=== PATIENT | male | born 1985 | race Caucasian/White ===

== ENCOUNTER 2024-11-14 15:00 | Emergency (ER) | payer OTHER, SELFPAY ==
[2024-11-14 15:07] VITALS: BP 131/91
[2024-11-14 15:45] LABS: Hematocrit 43.1 % (39.0-52.0); Hemoglobin 15.4 g/dL (13.0-18.0); Mean Corp Hgb Conc. 35.7 g/dL (33.0-37.0); Mean Corpuscular Volume 86.4 fL (80.0-94.0); Nucleated Red Blood Cells % 0 % (-); Platelet Count 241 10^3/uL (130-400); Red Cell Dist. Width 11.8 % (11.5-14.5)
[2024-11-14 16:10] LABS: ALT (SGPT) 16 U/L (0-50); AST (SGOT) 24 U/L (17-59); Albumin 4.9 g/dl (3.5-5.0); Alkaline Phosphatase 45 U/L (38-126); Blood Urea Nitrogen 18 mg/dl (9-20); Calcium 9.6 mg/dl (8.4-10.2); Carbon Dioxide 24 mmol/L (22-30); Chloride 107 mmol/L (98-107); Glucose 109 mg/dl (70-99); Potassium 4.0 mmol/L (3.5-5.1); Sodium 138 mmol/L (135-145); Total Protein 7.1 g/dl (6.3-8.2); eGFR > 60.00
--- NOTE | 2024-11-14 16:28 | ED.GENMED ---
History of Present Illness
General
Chief Complaint: Skin Problem
Source: patient and spouse
Time Seen by Provider: 11/14/24 16:05
History of Present Illness
History of Present Illness:
This patient is a 39-year-old male presents emergency department accompanied by his , who is an RN here in the hospital. Patient works as a builder, and states that yesterday after work he came home was playing with his cats, laying down and
started to feel itchy in the thigh area bilaterally. This progressed over about an hour associated with slight chest tightness. He looked in the mirror and noted that he had a 'rash all over'. At his 's recommendation he took Benadryl,
Pepcid, and applied cortisone cream. This helped improve his symptoms. However, in the middle the night he says that he woke up and noted 'pressure' in his chest that felt like air was trapped there. He fell back asleep and this morning he noted
that his lower lip looks slightly swollen. He has been able to eat and drink today without difficulty but he momentarily felt like there was 'tight' feeling in his throat. He denies fever, chills, tick bite, sore throat, rhinorrhea, difficulty
swallowing, dyspnea, headache, leg swelling, new exposures, or other complaints.
Past History
Past History
ED Past Medical History: None
ED Past Surgical History: None
Social History
Tobacco: Non-smoker
Alcohol: Occasional
Drug: None
Personal:
Living: with family
Employment: Employed
Phy Exam
Physical Exam
Physical Exam:
GENERAL: Alert , in no apparent distress
EYE: pupils equal and reactive
NECK: Supple, no significant adenopathy.
ENT: o/p clr, mmm, no lip swelling noted, no trismus, no drool, no stridor, voice clear.
CARDIAC: Regular rate and rhythm .
LUNGS: Clear breath sounds bilaterally, no acute respiratory distress, no wheezes/rales/rhonchi
ABDOMEN: Soft, without focal tenderness, no r/g, no cvat
NEUROLOGICAL: Alert and oriented, no focal neuro deficits
SKIN: Warm and dry, skin intact. There is a diffuse urticarial rash noted throughout upper extremities, face, and torso
MUSCULOSKELETAL: No edema, well perfused.
PSYCH: Normal and appropriate interaction.
Course
Orders/Labs/Results
Orders:
Orders
11/14/24 15:37
Electrocardiogram (*1) Urgent
Reason for Study: Chest Pain
11/14/24 15:38
EKG- Treatment ONCE
Complete Blood Count/With Diff Urgent
Comprehensive Metabolic Panel Urgent
11/14/24 15:44
Dexamethasone Sod Phosphate [Decadron] 20 mg .ROUTE .STK-MED ONE
Diphenhydramine [Benadryl] 50 mg .ROUTE .STK-MED ONE
EPINEPHrine PF [Adrenalin] 1 mg .ROUTE .STK-MED ONE
11/14/24 15:45
Famotidine [Pepcid] 20 mg .ROUTE .STK-MED ONE
11/14/24 16:28
Cardiac Monitoring- Treatment ONCE
Dexamethasone Sod Phosphate [Decadron] 10 mg IV NOW STA
Diphenhydramine [Benadryl] 25 mg IV NOW STA
Famotidine [Pepcid] 20 mg IV NOW STA
Abnormal Lab Results
11/14/24
15:38
Absolute Neuts (auto) 6.8 H 10^3/uL
(1.4-6.5)
Glucose 109 H mg/dl
(70-99)
11/14/24 15:38
11/14/24 15:38
Vital Signs
Initial and Last Documented VS:
Initial Vital Signs
Temp Pulse Resp BP Pulse Ox
98.1 F 79 16 131/91 98
11/14/24 15:07 11/14/24 15:07 11/14/24 15:07 11/14/24 15:07 11/14/24 15:07
Last Documented Vital Signs
Temp Pulse Resp BP Pulse Ox
98.1 F 71 24 116/86 97
11/14/24 15:07 11/14/24 17:45 11/14/24 17:45 11/14/24 17:00 11/14/24 17:45
*Pulse Oximetry
SaO2: 98
Oxygen Mode of Delivery: Room air
Patient hypoxic: no
*Critical Care Note
Total Time (30-74mins, 75-104mins- exclusive of procedures): Not Applicable
Update Note
Update Note:
Patient presents to the Emergency Department with __rash
Number and Complexity of Problems Addressed at the Encounter
� Chronic conditions affecting care:
� Acute Exacerbation and/or Progression of Chronic Illness:
� Differential Diagnosis includes: But not limited to idiopathic urticaria, allergic reaction, angioedema, tickborne illness, etc. etc.
Amount and/or Complexity of Data to be Reviewed and Analyzed
� I performed an independent evaluation of and my interpretation is:
EKG: Read by me, normal sinus rhythm, normal rate, no acute ischemia
CT:
Xrays:
Laboratory Studies: Unremarkable
Other:
� Review of other/old records reveals:
� Clinical information was obtained by an independent historian: who is bedside
� Prescriptions/Medications Considered but not given:
� Further testing considered but not performed:
Risk of Complications and/or Morbidity or Mortality of Patient Management
� Social determinants of health affecting care:
� Discussion with other providers (PCP, Hospitalists, Consultants, etc):
� Escalation of care including admission/observation vs risk of discharge considered: Rash and history very consistent with urticaria. No specific trigger identified at this time. Patient has had vague and short-lived symptoms
of lip swelling, throat tightness, etc. Airway is completely patent at this time, no signs of swelling or airway compromise noted. We will administer medications here and observe closely. Patient likely will be stable for discharge with addition
of p.o. prednisone, EpiPen, and allergy follow-up. Discussed with patient and importance of this follow-up, and reasons to return the emergency department as well as how to use an EpiPen and when.
5:56 PM patient markedly improved, her rash resolved, no new symptoms, airway remains patent. Discussed with patient importance of follow-up and reasons return to the ER.
ED Attending Note
-
Portions of this chart may have been created with voice recognition software.� Occasional wrong word or��sound alike� substitutions may have occurred due to the inherent limitations of voice recognition software.
Discharge Plan
Departure
Patient Disposition: Home (Routine Discharge)
Date of Disposition: 11/14/24
Time of Disposition: 17:57
Patient with high blood pressure during this ER visit?: Yes
Condition: Good
Discharge Problem:
Urticaria
Instructions: Hives, BLOOD PRESSURE
Prescriptions:
New
epinephrine [EpiPen 2-Andrei] 0.3 mg/0.3 mL auto-injector
0.3 mg IM ONCE Qty: 2 0RF
prednisone 50 mg tablet
50 mg PO DAILY Qty: 5 0RF
Referrals:
Cookie Blake MD [Consulting Staff, [facility] Technician] - Next open appointment
Sukumar Ravi MD [Family Provider, Family Practice]
Activity Restrictions/Additional Instructions:
IF YOU DEVELOP LIP OR TONGUE SWELLING, SHORTNESS OF BREATH, THROAT TIGHTNESS, CHANGE IN VOICE, DROOLING, CHEST PAIN, GET WORSE, DO NOT GET BETTER, OR OTHER WORRISOME SIGNS, PLEASE RETURN TO THE ER IMMEDIATELY! PLEASE TAKE A ZYRTEC EVERY MORNING
UNTIL YOUR SYMPTOMS ARE RESOLVED.
Interventions
Interventions:
*Risk Screen - Suicide Last Done: 11/14/24 15:07
*General Assessment Last Done: 11/14/24 15:07
*Neglect/Abuse Screening Last Done: 11/14/24 15:07
*ED- Fall Risk Assessment Last Done: 11/14/24 18:05
*ED COVID-19 Vaccine History Last Done: 11/14/24 16:45
*Nursing Disposition Last Done: 11/14/24 18:05
ED-Skin Assessment Last Done: 11/14/24 18:05
Discharge Date and Time
Discharge Date/Time: 11/14/24 18:06
Print Language: HUNGARIAN
[2024-11-14] MEDS: PEPCID 20 MG IV (16:34)
[2024-11-14] MEDS: DECADRON 10 MG IV (16:35)
[2024-11-14] MEDS: BENADRYL 25 MG IV (16:35)
[2024-11-14 17:00] VITALS: BP 116/86
== END 2024-11-14 18:06 | disposition home or self-care (01) ==
LOC: EMR 15:00
PROVIDERS: Emergency Medicine; EMERGENCY PHYSICIAN Emergency Medicine; FAMILY PHYSICIAN Student in an Organized Health Care Education/Training Program
DX: L50.9 Urticaria, unspecified (principal)
CPT/HCPCS: 99283; 96374; 96375; 80053; 85025; 93005

== ENCOUNTER 2024-11-14 20:29 | Emergency (ER) | payer OTHER, SELFPAY ==
[2024-11-14 20:33] VITALS: BP 140/83
[2024-11-14 21:40] VITALS: BP 123/91
[2024-11-14 21:41] VITALS: BMI 23.4
--- NOTE | 2024-11-14 21:57 | ED.GENMED ---
History of Present Illness
General
Chief Complaint: Allergic Reaction
Time Seen by Provider: 11/14/24 21:57
History of Present Illness
History of Present Illness:
PAST MEDICAL HISTORY AND REVIEW OF OLD RECORDS
- The patient has a history of ADHD. I reviewed records. The patient was seen here earlier with a rash that developed after playing with his. Prior to the initial evaluation in the emerge department, he took Benadryl, Pepcid, and hydrocortisone
cream. Earlier today, the patient was given Decadron, Benadryl, and epinephrine as well as Pepcid.
The patient had blood work earlier today that showed a normal CBC and chemistries.
Note:
CHIEF COMPLAINT(S)
Recurrent allergic reaction with rash and swelling around the eyes, found primarily on and around the face and extending to the hands.
HISTORY OF PRESENT ILLNESS
The patient is a 39-year-old male who presented with recurrent episodes of an allergic reaction, characterized by swelling around his eyes and a rash extending to various parts of his body, including his ears, chest, palms, and around his wedding
ring. He noted that the symptoms began after playing with his cats, although he has never had an allergic reaction to them before. The symptoms exacerbated following meals.
The initial episode occurred earlier today, and he was treated in the Emergency Room by Dr. Ojeda with intravenous medication and a dose of steroid. He experienced symptomatic improvement, but symptoms reappeared, particularly after eating. He
self-administered oral Benadryl around 7:30 PM due to worsening symptoms, which provided some relief. The patient mentions that his palms and the area around his wedding band became notably reddened and irritated.
He reports having never experienced such symptoms in the past and denies any recent new medication usage or exposure to new detergents or substances.
A long-acting steroid was administered during his earlier ER visit, and he received a prescription for prednisone to begin the following day. The patient also considered possible interactions with melatonin, which he takes in low doses to aid sleep,
and inquired about its concurrent use with Benadryl.
PHYSICAL EXAM
General: Alert, no acute distress.
Skin: Warm, dry. Rash consistent with urticaria noted on ears and other areas previously mentioned.
Head: Normocephalic, atraumatic.
Neck: Supple, trachea midline. No swelling observed in the airway upon examination.
Eye, Ears, Nose, Mouth, and Throat: Oral mucosa moist. Uvula and the posterior oropharynx were normal with no swelling.
Cardiovascular: Normal peripheral perfusion, No edema.
Respiratory: Respirations are non-labored. Lungs sound fine. Breath sounds are clear and equal.
Gastrointestinal: Abdomen nondistended.
Back: Normal range of motion, Normal alignment.
Musculoskeletal: Normal range of motion, normal strength.
Neurological: Alert and oriented to person, place, time, and situation. No focal neurological deficit observed.
Psychiatric: Cooperative, appropriate mood & affect.
PROBLEM LIST
Acute: Allergic reaction with recurrent rash and swelling.
PLAN
1. Start oral prednisone as prescribed to manage recurrent symptoms, especially given the episodic nature of this reaction.
2. Continue taking oral Benadryl as needed for symptomatic relief, particularly in the evening or at the onset of symptoms.
3. Avoid potential allergens or triggers, though the specific allergen remains unidentified.
4. Consider consulting an keyboard teacher for further evaluation of potential triggers and long-term management.
5. Monitor symptoms closely, and seek immediate medical attention if symptoms worsen significantly or if there is any indication of airway compromise.
DIFFERENTIAL DIAGNOSIS
The Differential Diagnosis includes, in no particular order and is not limited to:
1. Allergic contact dermatitis
2. Urticaria
3. Angioedema
4. Anaphylaxis
5. Food allergies
6. Medication reaction
7. Autoimmune disorder
8. Viral exanthem
9. Atopic dermatitis
10. Idiopathic hypersensitivity reaction
SUMMARY OF ENCOUNTER
The patient presented to the emergency department with recurrent allergic reactions characterized by rash and swelling around the eyes, primarily after playing with cats and exacerbated by meals. The patient self-administered diphenhydramine
(Benadryl) prior to arrival, which provided symptomatic relief. In the emergency department, he appeared well, and vital signs did not indicate anaphylaxis. No additional testing or treatments were deemed necessary at this time.
PLAN
The patient will take an additional dose of diphenhydramine before bed as discussed.
PATIENT EDUCATION AND COUNSELING
The patient was advised to take an extra dose of diphenhydramine prior to bedtime for symptom management. Avoidance of potential allergens and monitoring of symptoms were recommended.
FOLLOW-UP INSTRUCTIONS
Consideration of consulting an keyboard teacher for further evaluation of triggers and long-term management was discussed.
MEDICATION RECONCILIATION
- Diphenhydramine: Patient self-administered prior to arrival and advised to take an additional dose before bed.
MEDICAL DECISION MAKING
- Number and Complexity of Problems Addressed: Acute allergic reaction with recurrent rash and swelling.
- Data: Vital signs reviewed and patient assessment conducted. No additional testing ordered due to rapid symptomatic improvement.
- Risk: Prescription drug management of diphenhydramine for symptom control was emphasized, with no need for escalation of care.
DIAGNOSIS
- Allergic reaction, unspecified (ICD-10: T78.40XA)
Past History
Past History
ED Past Medical History: None
ED Past Surgical History: None
Social History
Tobacco: Non-smoker
Alcohol: Occasional
Drug: None
Personal:
Living: with family
Employment: Employed
Phy Exam
Physical Exam
Physical Exam:
See HPI
Course
Vital Signs
Initial and Last Documented VS:
Initial Vital Signs
Temp Pulse Resp BP Pulse Ox
36.4 C 78 16 140/83 96
11/14/24 20:11/14/24 20:33 11/14/24 20:11/14/24 20:11/14/24 20:33
Last Documented Vital Signs
Temp Pulse Resp BP Pulse Ox
36.4 C 78 16 123/91 96
11/14/24 20:11/14/24 20:33 11/14/24 20:33 11/14/24 21:40 11/14/24 21:59
*Pulse Oximetry
SaO2: 96
Oxygen Mode of Delivery: Room air
Patient hypoxic: no
*Critical Care Note
Total Time (30-74mins, 75-104mins- exclusive of procedures): Not Applicable
ED Attending Note
-
Portions of this chart may have been created with voice recognition software.� Occasional wrong word or��sound alike� substitutions may have occurred due to the inherent limitations of voice recognition software.
Discharge Plan
Departure
Patient Disposition: Home (Routine Discharge)
Date of Disposition: 11/14/24
Time of Disposition: 22:11
Patient with high blood pressure during this ER visit?: Yes
Discharge Problem:
Urticaria
Instructions: Hives (DC), BLOOD PRESSURE
Prescriptions:
No Action
epinephrine [EpiPen 2-Andrei] 0.3 mg/0.3 mL auto-injector
0.3 mg IM ONCE Qty: 2 0RF
prednisone 50 mg tablet
50 mg PO DAILY Qty: 5 0RF
Referrals:
Sukumar Ravi MD [Family Provider, Family Practice]
Activity Restrictions/Additional Instructions:
Continue medications as previously prescribed. Return here if worse or other concerns. Take Benadryl prior to going to bed tonight. You could also continue taking Pepcid. I would take a dose of prednisone tomorrow morning.
Interventions
Interventions:
*Risk Screen - Suicide Last Done: 11/14/24 20:34
*General Assessment Last Done: 11/14/24 21:42
*Neglect/Abuse Screening Last Done: 11/14/24 20:34
*ED- Fall Risk Assessment Last Done: 11/14/24 21:42
*ED COVID-19 Vaccine History Last Done: 11/14/24 21:42
ED- Cardiac Assessment Last Done: 11/14/24 21:42
ED- Pulmonary Assessment Last Done: 11/14/24 21:42
ED-Skin Assessment Last Done: 11/14/24 21:42
Discharge Date and Time
Print Language: [place]
== END 2024-11-14 22:19 | disposition home or self-care (01) ==
LOC: EMR 20:29
PROVIDERS: EMERGENCY PHYSICIAN Emergency Medicine; FAMILY PHYSICIAN Student in an Organized Health Care Education/Training Program
DX: L50.9 Urticaria, unspecified (principal); F90.9 Attention-deficit hyperactivity disorder, unspecified type; Z88.8 Allergy status to other drugs, medicaments and biological substances
CPT/HCPCS: 99282